=== PATIENT | female | born 1990 | race African-American/Black ===

== ENCOUNTER 2018-07-27 11:15 | Emergency (ER) | payer SELFPAY ==
[~2018-07-27] VITALS: Ht 157.5 cm; Wt 54.0 kg
[2018-07-27] MEDS ORDERED: MORPHINE SULFATE 4 MG/ML CPJ (NOT FOR IM USE) IV STA (12:09)
[2018-07-27] MEDS ORDERED: ONDANSETRON HCL 4MG/2ML INJ IV STA (12:09)
[2018-07-27 12:16] LABS: BASOPHILS % 0.3 % (0.0-2.0); EOSINOPHILS % 0.4 % (0.0-5.0); HEMATOCRIT. 40.2 % (36.0-48.0); HEMOGLOBIN. 13.4 g/dL (12.0-16.0); LYMPHOCYTES % 10.8 % (20.0-50.0); MEAN CORPUSCULAR HEMOGLOBIN 29.6 pg (28.0-32.0); MEAN CORPUSCULAR VOLUME 88.6 fL (81.0-99.0); MEAN PLATELET VOLUME 7.6 fl (7.4-10.4); NEUTROPHILS % 82.5 % (40.0-76.0); PLATELET 326 x1000/uL (130-400); RED BLOOD CELL COUNT 4.54 mill/uL (4.2-5.4); RED CELL DISTRIBUTION WIDTH 13.8 % (11.6-14.6)
[2018-07-27 12:23] LABS: CHLORIDE 109 mEq/L (98-107)
[2018-07-27 12:25] LABS: PROTHROMBIN TIME 10.3 sec (9.1-11.1)
[2018-07-27 12:26] LABS: HCG SCREEN NEGATIVE
[2018-07-27] MEDS ORDERED: MORPHINE SULFATE 10 MG/ML CPJ IV STA (13:11)
[2018-07-27] MEDS ORDERED: ONDANSETRON HCL 4MG/2ML INJ IV ONE (14:30)
[2018-07-27 14:42] LABS: CLARITY URINE CLEAR (CLEAR); COLOR URINE YELLOW (YELLOW); KETONES URINE NEGATIVE (NEGATIVE); LEUKOCYTE ESTERASE URINE NEGATIVE (NEGATIVE); NITRITE URINE NEGATIVE (NEGATIVE); OCCULT BLOOD URINE 1+ (NEGATIVE); PH URINE 7.5 (4.5-8.0); PROTEIN URINE NEGATIVE (NEGATIVE); SPECIFIC GRAVITY URINE 1.019 (1.005-1.030)
[2018-07-27] MEDS ORDERED: MAGNESIUM CITRATE 300ML SOLUTION PO ONE (15:45)
[2018-07-27 16:30] VITALS: BP 102/71
== END 2018-07-27 16:45 | disposition home or self-care (01) ==
LOC: ER 11:15
DX: R10.13 Epigastric pain (principal); R11.2 Nausea with vomiting, unspecified; K56.41 Fecal impaction
CPT/HCPCS: 36415; 74176; 80053; 81003; 81025; 83690; 84703; 85025; 85610; 96374; 96375; 96376; 99284; J2270; J2405

== ENCOUNTER 2018-08-24 00:19 | Emergency (ER) | payer MEDICAID ==
[~2018-08-24] VITALS: Ht 157.5 cm; Wt 54.0 kg
[2018-08-24 01:03] VITALS: BP 104/68
== END 2018-08-24 03:30 | disposition left against medical advice (07) ==
LOC: ER 00:19
DX: R10.32 Left lower quadrant pain (principal); R11.10 Vomiting, unspecified; Z53.21 Procedure and treatment not carried out due to patient leaving prior to being seen by health care provider

== ENCOUNTER 2019-04-07 22:41 | Emergency (ER) | payer MEDICAID ==
[~2019-04-07] VITALS: Ht 157.5 cm; Wt 64.0 kg
[2019-04-08] MEDS ORDERED: SODIUM CHLORIDE 0.9% 1,000 ML IV ONE (01:29)
[2019-04-08] MEDS ORDERED: MORPHINE SULFATE 4 MG/ML CPJ (NOT FOR IM USE) IV STA (01:29)
[2019-04-08] MEDS ORDERED: ONDANSETRON HCL 4MG/2ML INJ IV STA (01:29)
[2019-04-08 02:13] LABS: CHLORIDE 104 mEq/L (98-107)
[2019-04-08 02:15] LABS: HCG SCREEN NEGATIVE
[2019-04-08 02:16] LABS: BASOPHILS % 0.4 % (0.0-2.0); EOSINOPHILS % 1.7 % (0.0-5.0); HEMATOCRIT. 33.7 % (36.0-48.0); HEMOGLOBIN. 11.3 g/dL (12.0-16.0); MEAN CORPUSCULAR HEMOGLOBIN 28.9 pg (28.0-32.0); MEAN CORPUSCULAR VOLUME 86.1 fL (81.0-99.0); MEAN PLATELET VOLUME 7.8 fl (7.4-10.4); MONOCYTES % 8.5 % (2.0-8.0); NEUTROPHILS % 60.4 % (40.0-76.0); PLATELET 356 x1000/uL (130-400); RED BLOOD CELL COUNT 3.91 mill/uL (4.2-5.4); RED CELL DISTRIBUTION WIDTH 13.2 % (11.6-14.6)
[2019-04-08 02:18] LABS: CLARITY URINE CLEAR (CLEAR); COLOR URINE YELLOW (YELLOW); KETONES URINE TRACE (NEGATIVE); LEUKOCYTE ESTERASE URINE 1+ (NEGATIVE); NITRITE URINE NEGATIVE (NEGATIVE); OCCULT BLOOD URINE 1+ (NEGATIVE); PH URINE 5.5 (4.5-8.0); PROTEIN URINE NEGATIVE (NEGATIVE); SPECIFIC GRAVITY URINE 1.027 (1.005-1.030)
[2019-04-08] MEDS ORDERED: METOCLOPRAMIDE HCL 10MG/2ML VIAL IV ONE (03:45)
[2019-04-08] MEDS ORDERED: KETOROLAC 30MG/ML VIAL IV ONE (04:00)
[2019-04-08] MEDS ORDERED: MORPHINE SULFATE 4 MG/ML CPJ (NOT FOR IM USE) IV ONE (07:00)
[2019-04-08 08:58] VITALS: BP 110/60
== END 2019-04-08 08:59 | disposition home or self-care (01) ==
LOC: ER 22:41
DX: R10.2 Pelvic and perineal pain (principal); R10.32 Left lower quadrant pain; R11.2 Nausea with vomiting, unspecified; Z88.0 Allergy status to penicillin
CPT/HCPCS: 36415; 74176; 76830; 76856; 80053; 81003; 81025; 83690; 84703; 85025; 96361; 96374; 96375; 96376; 99284; J1885; J2270; J2405; J2765; J7030

== ENCOUNTER 2022-06-17 22:43 | Emergency (ER) | payer MEDICAID ==
[~2022-06-17] VITALS: Ht 160 cm; Wt 63.7 kg
[2022-06-17 22:47] VITALS: BP 122/56
[2022-06-17] MEDS ORDERED: MAGNESIUM/ALUMINUM HYDROXIDE/SIMETHICONE 30ML UDC PO STA (23:20)
[2022-06-17] MEDS ORDERED: ACETAMINOPHEN 325MG TABLET PO STA (23:20)
[2022-06-17] MEDS ORDERED: FAMOTIDINE 20MG TABLET PO ONE (23:30)
[2022-06-17 23:38] LABS: CLARITY URINE CLOUDY (CLEAR); COLOR URINE YELLOW (YELLOW); KETONES URINE NEGATIVE (NEGATIVE); LEUKOCYTE ESTERASE URINE 2+ (NEGATIVE); NITRITE URINE NEGATIVE (NEGATIVE); OCCULT BLOOD URINE 1+ (NEGATIVE); PH URINE 6.5 (4.5-8.0); PROTEIN URINE NEGATIVE (NEGATIVE); SPECIFIC GRAVITY URINE 1.022 (1.005-1.030)
[2022-06-17] MEDS ORDERED: ONDANSETRON HCL 4MG TABLET PO ONE (23:45)
[2022-06-18 00:42] LABS: BASOPHILS % 0.8 % (0.0-2.0); EOSINOPHILS % 2.3 % (0.0-5.0); HEMATOCRIT. 39.5 % (36.0-48.0); HEMOGLOBIN. 13.4 g/dL (12.0-16.0); LYMPHOCYTES % 28.2 % (20.0-50.0); MEAN CORPUSCULAR VOLUME 85.4 fL (81.0-99.0); MEAN PLATELET VOLUME 8.3 fl (7.4-10.4); MONOCYTES % 8.4 % (2.0-8.0); NEUTROPHILS % 60.3 % (40.0-76.0); PLATELET 458 x1000/uL (130-400); RED BLOOD CELL COUNT 4.63 mill/uL (4.2-5.4); RED CELL DISTRIBUTION WIDTH 14.3 % (11.6-14.6)
[2022-06-18 00:51] LABS: CHLORIDE 102 mEq/L (98-107)
[2022-06-18] MEDS ORDERED: FAMO-135 PO (01:16)
[2022-06-18] MEDS ORDERED: NITR-87 MT (01:16)
[2022-06-18] MEDS ORDERED: IBUP-2028 MT (01:16)
== END 2022-06-18 01:37 | disposition home or self-care (01) ==
LOC: ER 22:43
DX: R10.13 Epigastric pain (principal); R51.9 Headache, unspecified; Z88.0 Allergy status to penicillin
CPT/HCPCS: 36415; 76700; 80053; 81003; 81025; 83690; 85025; 99284; Q0162